=== PATIENT | male | born 1970 | race Caucasian/White ===

== ENCOUNTER 2024-03-21 11:39 | Observation (INO) | payer BC ==
[~2024-03-21] VITALS: Ht 167.6 cm; Wt 74.5 kg
[2024-03-21] MEDS ORDERED: Heparin Sodium 5000 Units/ML 1ML MDV IV ONE (12:10)
[2024-03-21] MEDS ORDERED: Aspirin 325 MG Tab PO ONE (12:10)
[2024-03-21 12:16] LABS: BASOPHILS ABSOLUTE AUTO 0.03 K/mm3 (0.00-0.23); BASOPHILS PERCENT AUTO 1 % (0-2); EOSINOPHILS ABSOLUTE AUTO 0.04 K/mm3 (0.00-0.68); EOSINOPHILS PERCENT AUTO 1 % (0-6); Hematocrit 43.3 % (37.0-53.0); Hemoglobin 14.8 g/dL (13.5-17.5); IMMATURE GRAN ABSOLUTE AUTO 0.01 K/mm3 (0.00-0.10); IMMATURE GRAN PERCENT AUTO 0 % (0-1); LYMPHOCYTES ABSOLUTE AUTO 1.24 K/mm3 (0.84-5.20); LYMPHOCYTES PERCENT AUTO 23 % (21-46); MONOCYTES ABSOLUTE AUTO 0.52 K/mm3 (0.16-1.47); MONOCYTES PERCENT AUTO 10 % (4-13); Mean Corpuscular HGB 31.8 pg (26.0-34.0); Mean Corpuscular HGB Conc 34.2 g/dL (31.5-36.5); Mean Corpuscular Volume 93 fL (80-100); NEUTROPHILS ABSOLUTE AUTO 3.61 K/mm3 (1.96-9.15); NEUTROPHILS PERCENT AUTO 66 % (41-73); Platelet Count 286 K/mm3 (150-400); RDW Coefficient Variation 13.6 % (11.7-14.2); RDW Standard Deviation 46.3 fL (35.1-46.3); Red Blood Cell Count 4.66 M/mm3 (4.30-5.90); White Blood Cell Count 5.45 K/mm3 (4.00-11.30)
[2024-03-21] MEDS ORDERED: LISI5 PO (12:16)
[2024-03-21] MEDS ORDERED: LIPITOR80 MG PO (12:16)
[2024-03-21] MEDS ORDERED: ASPI81CH PO (12:16)
[2024-03-21 12:31] LABS: Alanine Aminotransfer (ALT/SGP 38 U/L (12-78); Albumin, Blood 4.3 g/dL (3.4-5.0); Albumin/Globulin Ratio 1.1 (0.8-1.8); Alk Phos 115 U/L (50-136); Anion Gap 11 mmol/L (3-11); Aspartate Aminotrans (AST/SGOT 36 U/L (12-37); Blood Urea Nitrogen 16 mg/dL (8-24); Bun/Creatinine Ratio 14.7 (12.0-20.0); CHOL/HDL RATIO 1.7; CO2, Blood 26 mmol/L (21-32); Calcium, Blood 8.8 mg/dL (8.5-10.1); Chloride, Blood 104 mmol/L (98-108); Cholesterol 138 mg/dL (50-200); Creatinine, Blood 1.09 mg/dL (0.60-1.20); Glomerular Filtration Rate 82 (60-); Glucose, Blood 110 mg/dL (70-99); HDL Cholesterol 83 mg/dL (>39); LDL/HDL RATIO 0.6; Low Density Lipoprotein Chol 49 mg/dL (0-110); Potassium, Blood 4.3 mmol/L (3.5-5.5); Sodium, Blood 137 mmol/L (136-145); Total Protein, Blood 8.3 g/dL (6.4-8.2); Triglycerides 32 mg/dL (30-160); Very Low Density Lipoprot Chol 6 mg/dL (6-32)
[2024-03-21 15:55] LABS: Anti-Xa UFH, PHA Monitoring <0.10 IU/mL; International Normalized Ratio 0.98; Prothrombin Time Results 10.5 Sec (9.7-11.5)
[2024-03-21] MEDS ORDERED: Dose Adjust by Pharmacy XX STA (16:08)
[2024-03-21] MEDS ORDERED: Heparin Sodium,Porcine/0.5 NS 500 ML IV SCH (16:10)
[2024-03-21 16:35] VITALS: BP 148/83
[2024-03-21] MEDS ORDERED: BUPR150ER PO (16:43)
--- NOTE | 2024-03-21 17:19 | NUR ---
PT ADMITTED TO PCU 17 THIS EVENING. HE IS IND IN THE ROOM, A&OX4, HEP GTT INFUSING PER EMAR. THE PT IS DENIES ANY ANGINA OR CHEST PRESSURE. ON RA SP02 >95%, HE DENIES ANY SOB. A TROP WAS DRAWN SHORTLY AFTER ADMITTING TO THE FLOOR. RESULTS PENDING. DR. PRITCHETT CAME TO BEDSIDE AND WANTS THE PT TO BE NPO UNTIL THE PT SEES CARDIOLOGY. SEE NOTES FOR UPDATES.
--- NOTE | 2024-03-21 18:41 | NUR ---
MEDICAL RECORD REQUEST SENT TO [facility] IN [place], [place]. FAX [phone]
[2024-03-21 19:18] VITALS: BP 129/78
[2024-03-21] MEDS ORDERED: Atorvastatin 40 MG Tab PO SCH (21:10)
[2024-03-21] MEDS ORDERED: Lisinopril 5 MG Tab PO SCH (21:10)
[2024-03-21] MEDS ORDERED: Clarify Drug Order XX ONE (23:20)
[2024-03-22 00:23] VITALS: BP 109/75
[2024-03-22 04:55] VITALS: BP 121/76
[2024-03-22 04:56] LABS: BASOPHILS ABSOLUTE AUTO 0.03 K/mm3 (0.00-0.23); BASOPHILS PERCENT AUTO 1 % (0-2); EOSINOPHILS ABSOLUTE AUTO 0.14 K/mm3 (0.00-0.68); EOSINOPHILS PERCENT AUTO 3 % (0-6); Hematocrit 40.2 % (37.0-53.0); Hemoglobin 13.8 g/dL (13.5-17.5); IMMATURE GRAN ABSOLUTE AUTO 0.01 K/mm3 (0.00-0.10); IMMATURE GRAN PERCENT AUTO 0 % (0-1); LYMPHOCYTES ABSOLUTE AUTO 1.56 K/mm3 (0.84-5.20); LYMPHOCYTES PERCENT AUTO 32 % (21-46); MONOCYTES ABSOLUTE AUTO 0.53 K/mm3 (0.16-1.47); MONOCYTES PERCENT AUTO 11 % (4-13); Mean Corpuscular HGB 31.9 pg (26.0-34.0); Mean Corpuscular HGB Conc 34.3 g/dL (31.5-36.5); Mean Corpuscular Volume 93 fL (80-100); NEUTROPHILS ABSOLUTE AUTO 2.59 K/mm3 (1.96-9.15); NEUTROPHILS PERCENT AUTO 53 % (41-73); Platelet Count 248 K/mm3 (150-400); RDW Coefficient Variation 13.5 % (11.7-14.2); RDW Standard Deviation 46.2 fL (35.1-46.3); Red Blood Cell Count 4.33 M/mm3 (4.30-5.90); White Blood Cell Count 4.86 K/mm3 (4.00-11.30)
--- NOTE | 2024-03-22 05:08 | NUR ---
SHIFT SUMMARY THIS RN ASSUMED CARE OF PATIENT AT 1900. PT A&O X4. ABLE TO MAKE NEEDS KNOWN. INDEPENDENT WITH ADL'S. SB WITH HR 40-50'S. OCCASIONALLY LOW 36 WHILE ASLEEP. PT REPORTS THIS IS BASELINE FOR HIM. BP STABLE. AFEBRILE. ON RA. PT DENIES CHEST PAIN/PRESSURE, DIZZINESS, AND SOB. PT HAS BEEN NPO SINCE MIDNIGHT. HEP GTT INFUSING PER EMAR. BED IN LOWEST POSITION AND CALL LIGHT WITHIN REACH. THIS RN WILL REPORT TO ONCOMING DAYSHIFT RN.
[2024-03-22] MEDS ORDERED: Clarify Drug Order XX ONE (05:25)
[2024-03-22 05:49] LABS: Albumin, Blood 3.6 g/dL (3.4-5.0); Bilirubin, Total 0.7 mg/dL (0.1-1.0); Bun/Creatinine Ratio 17.8 (12.0-20.0); Calcium, Blood 8.5 mg/dL (8.5-10.1); Creatinine, Blood 1.07 mg/dL (0.60-1.20); Globulin, Blood 3.6 g/dL (2.2-4.0); Potassium, Blood 4.2 mmol/L (3.5-5.5); Thyroid Stimulating Hormone 0.741 uIU/mL (0.360-4.800); Total Protein, Blood 7.2 g/dL (6.4-8.2)
[2024-03-22 07:33] VITALS: BP 106/74
[2024-03-22] MEDS ORDERED: buPROPion HCL 150 MG TAB.SR.12H PO SCH (09:00)
[2024-03-22] MEDS ORDERED: Aspirin 81 MG Chew PO SCH (09:00)
[2024-03-22] MEDS ORDERED: Atorvastatin 40 MG Tab PO SCH (09:00)
[2024-03-22] MEDS ORDERED: Lisinopril 5 MG Tab PO SCH (09:00)
[2024-03-22] MEDS ORDERED: Regadenoson 0.4 MG/5 ML SYRINGE ONE (10:45)
[2024-03-22 11:21] VITALS: BP 126/74
[2024-03-22] MEDS ORDERED: Isosorbide Mono30 MG PO (15:09)
[2024-03-22 15:20] VITALS: BP 129/80
[2024-03-22 15:45] VITALS: BP 133/83
[2024-03-23] MEDS ORDERED: Metoprolol Succinate 25 MG TABCR PO SCH (09:00)
[2024-03-23] MEDS ORDERED: Isosorbide Mononitrate 30 MG TABCR PO SCH (09:00)
== END 2024-03-22 15:57 | disposition home or self-care (01) ==
LOC: ER 11:39 → PCU 11:40
PROVIDERS: Emergency Medicine; Student in an Organized Health Care Education/Training Program; ADMIT Internal Medicine
DX: R07.89 Other chest pain (principal); I25.10 Atherosclerotic heart disease of native coronary artery without angina pectoris; Z95.1 Presence of aortocoronary bypass graft; I10 Essential (primary) hypertension; F41.9 Anxiety disorder, unspecified; Z79.82 Long term (current) use of aspirin; Z79.899 Other long term (current) drug therapy
CPT/HCPCS: 36415; 71045; 78452; 80053; 80061; 83036; 84443; 84484; 85025; 85520; 85610; 85730; 86850; 86900; 86901; 93005; 93010; 93017; 93306; 94760; 96374; 96376; 99285-25; A9270; A9500; G0378; J1644; J2785